=== PATIENT | female | born 1980 | race Caucasian/White ===

== ENCOUNTER 2017-08-27 15:19 | Emergency (ER) | payer OTHER ==
[~2017-08-27] VITALS: Ht 167.6 cm; Wt 84.4 kg
[~2017-08-27 15:19] MED LIST: ADAL40PEN; CYCL10 PO; FOLATE PO; LEUC5 PO; LORA1 PO; METTREX2.5 PO; Omeprazole20 M1 PO; TRAM50 PO
[2017-08-27] MEDS ORDERED: CHLO25 PO (16:30)
[2017-08-27 16:36] LABS: BASOPHILS ABSOLUTE AUTO 0.05 K/mm3 (0.00-0.23); BASOPHILS PERCENT AUTO 1 % (0-2); EOSINOPHILS ABSOLUTE AUTO 0.23 K/mm3 (0.00-0.68); EOSINOPHILS PERCENT AUTO 5 % (0-6); Hematocrit 39.7 % (33.0-51.0); Hemoglobin 12.9 g/dL (11.5-16.0); IMMATURE GRAN ABSOLUTE AUTO 0.01 K/mm3 (0.00-0.10); IMMATURE GRAN PERCENT AUTO 0 % (0-1); LYMPHOCYTES ABSOLUTE AUTO 1.67 K/mm3 (0.84-5.20); LYMPHOCYTES PERCENT AUTO 33 % (21-46); MONOCYTES ABSOLUTE AUTO 0.47 K/mm3 (0.16-1.47); MONOCYTES PERCENT AUTO 9 % (4-13); Mean Corpuscular HGB 29.9 pg (26.0-34.0); Mean Corpuscular HGB Conc 32.5 g/dL (31.5-36.5); Mean Corpuscular Volume 92 fL (80-100); NEUTROPHILS ABSOLUTE AUTO 2.65 K/mm3 (1.96-9.15); NEUTROPHILS PERCENT AUTO 52 % (41-73); Platelet Count 284 K/mm3 (150-400); RDW Coefficient Variation 17.2 % (11.7-14.2); RDW Standard Deviation 58.6 fL (35.1-46.3); Red Blood Cell Count 4.32 M/mm3 (3.80-5.20); White Blood Cell Count 5.08 K/mm3 (4.00-11.30)
[2017-08-27] MEDS ORDERED: Amoxicillin500 MG PO (16:47)
[2017-08-27 17:12] LABS: Alanine Aminotransfer (ALT/SGP 88 U/L (12-78); Albumin/Globulin Ratio 0.6 (0.8-1.8); Alk Phos 110 U/L (50-136); Anion Gap 11 mmol/L (6-16); Aspartate Aminotrans (AST/SGOT 107 U/L (12-37); Bilirubin, Total 0.3 mg/dL (0.1-1.0); Blood Urea Nitrogen 9 mg/dL (8-24); Bun/Creatinine Ratio 15.8 (12.0-20.0); CO2, Blood 23 mmol/L (21-32); Calcium, Blood 8.3 mg/dL (8.5-10.1); Chloride, Blood 105 mmol/L (98-108); Creatinine, Blood 0.57 mg/dL (0.40-1.00); Globulin, Blood 4.7 g/dL (2.2-4.0); Glomerular Filtration Rate >60 (60-); Glucose, Blood 105 mg/dL (70-99); Potassium, Blood 3.9 mmol/L (3.5-5.5); Sodium, Blood 139 mmol/L (136-145); Total Protein, Blood 7.7 g/dL (6.4-8.2)
== END 2017-08-27 18:29 | disposition home or self-care (01) ==
LOC: ER 15:19
PROVIDERS: Emergency Medicine
DX: F10.230 Alcohol dependence with withdrawal, uncomplicated (principal); F32.9 Major depressive disorder, single episode, unspecified; K02.9 Dental caries, unspecified; Z79.899 Other long term (current) drug therapy; F17.200 Nicotine dependence, unspecified, uncomplicated
CPT/HCPCS: 36415; 80053; 81000; 81025; 85025; 96361; 96374; 99284; J2060; J7030

== ENCOUNTER → 2017-12-11 | Outpatient (CLI) | payer OTHER ==
[~2017-12-11] MED LIST changes: +Amoxicillin500 MG PO; +CHLO25 PO
[2017-12-11 18:57] LABS: U Amphetamine Screen Not Detected; U Barbituate Screen Not Detected; U Benzodiazapine Screen DETECTED; U Cocaine Screen Not Detected; U Methadone Screen Not Detected; U Methamphetamine Screen Not Detected; U Opiates Screen Not Detected; U Phencyclidine Screen Not Detected
[2017-12-11 18:58] LABS: U Buprenorphine Screen Not Detected; U Cannabinoids Screen Not Detected; U Oxycodone Screen Not Detected; U Propoxyphene Screen Not Detected
== END ==
LOC: LAB 16:20 → LAB SHORT 16:20
PROVIDERS: Nurse Practitioner Family
DX: Z51.81 Encounter for therapeutic drug level monitoring (principal); Z79.899 Other long term (current) drug therapy

== ENCOUNTER 2018-08-21 12:49 | Emergency (ER) | payer OTHER ==
[~2018-08-21] VITALS: Ht 167.6 cm; Wt 99.8 kg
[2018-08-21] MEDS ORDERED: Ambien10 MG PO (13:52)
[2018-08-21] MEDS ORDERED: VIIBRYD20 MG PO (13:52)
[2018-08-21] MEDS ORDERED: Ativan1 MG PO (13:52)
== END 2018-08-21 14:01 | disposition home or self-care (01) ==
LOC: ER 12:49
DX: F32.9 Major depressive disorder, single episode, unspecified (principal); F17.210 Nicotine dependence, cigarettes, uncomplicated

== ENCOUNTER 2018-10-06 16:44 | Inpatient (IN) | payer OTHER ==
[~2018-10-06] VITALS: Ht 172.7 cm; Wt 99.9 kg
[~2018-10-06 16:44] MED LIST changes: +Ambien10 MG PO; +Ativan1 MG PO; +VIIBRYD20 MG PO
[2018-10-06 17:42] LABS: Base Excess Venous -5.8 mmol/L; Bicarbonate Venous 20.4 mmol/L (24.0-30.0); PCO2 Venous 30.8 mmHg (38-42); PO2 Venous 60.1 mmHg (38-42)
[2018-10-06 17:55] LABS: BASOPHILS ABSOLUTE AUTO 0.04 K/mm3 (0.00-0.23); BASOPHILS PERCENT AUTO 0 % (0-2); EOSINOPHILS ABSOLUTE AUTO 0.06 K/mm3 (0.00-0.68); EOSINOPHILS PERCENT AUTO 1 % (0-6); Hematocrit 43.4 % (33.0-51.0); Hemoglobin 13.7 g/dL (11.5-16.0); IMMATURE GRAN ABSOLUTE AUTO 0.04 K/mm3 (0.00-0.10); IMMATURE GRAN PERCENT AUTO 0 % (0-1); LYMPHOCYTES ABSOLUTE AUTO 1.68 K/mm3 (0.84-5.20); LYMPHOCYTES PERCENT AUTO 16 % (21-46); MONOCYTES ABSOLUTE AUTO 0.67 K/mm3 (0.16-1.47); MONOCYTES PERCENT AUTO 6 % (4-13); Mean Corpuscular HGB 26.6 pg (26.0-34.0); Mean Corpuscular HGB Conc 31.6 g/dL (31.5-36.5); Mean Corpuscular Volume 84 fL (80-100); Mean Platelet Volume 8.7 fL (9.1-12.4); NEUTROPHILS PERCENT AUTO 76 % (41-73); Platelet Count 407 K/mm3 (150-400); RDW Coefficient Variation 21.7 % (11.7-14.2); RDW Standard Deviation 66.5 fL (35.1-46.3); Red Blood Cell Count 5.15 M/mm3 (3.80-5.20); White Blood Cell Count 10.49 K/mm3 (4.00-11.30)
[2018-10-06] MEDS ORDERED: CHOL10002 (17:55)
[2018-10-06] MEDS ORDERED: Sudogest30 MG PO (17:59)
[2018-10-06 18:14] LABS: Alanine Aminotransfer (ALT/SGP 31 U/L (12-78); Alk Phos 104 U/L (50-136); Anion Gap 12 mmol/L (6-16); Aspartate Aminotrans (AST/SGOT 18 U/L (12-37); Bilirubin, Total 0.4 mg/dL (0.1-1.0); Blood Urea Nitrogen 5 mg/dL (8-24); Bun/Creatinine Ratio 7.3 (12.0-20.0); CO2, Blood 19 mmol/L (21-32); Calcium, Blood 9.1 mg/dL (8.5-10.1); Chloride, Blood 109 mmol/L (98-108); Creatinine, Blood 0.68 mg/dL (0.40-1.00); Ethanol (Alcohol), Blood, Med 15 mg/dL; Glomerular Filtration Rate >60 (60-); Glucose, Blood 122 mg/dL (70-99); Potassium, Blood 4.2 mmol/L (3.5-5.5); Salicylate <1.7 mg/dL (2.8-20.0); Sodium, Blood 140 mmol/L (136-145)
[2018-10-06 18:47] LABS: Bilirubin, Urine Neg (Neg); Blood, Urine 1+ (Neg); Glucose Qualitative, Urine Neg (Neg); Ketones, Urine 1+ (Neg); Leukocyte Esterase, Urine 1+ (Neg); Nitrite, Urine Neg (Neg); Protein, Urine Neg (Neg); Source, Urine Clean Catch; Urobilinogen, Urine NORM (Normal)
[2018-10-06 18:51] LABS: Appearance, Urine Clear (Clear); Color, Urine Yellow (P-Yellow)
[2018-10-06 18:53] LABS: Bacteria Few /hpf; Red Blood Cells, Urine 0-2 /hpf (0-2); Squamous Epithelial Cells Few /hpf (Few); White Blood Cells, Urine 0-2 /hpf (0-5)
[2018-10-06 18:58] LABS: U Amphetamine Screen Not Detected; U Barbituate Screen Not Detected; U Benzodiazapine Screen DETECTED; U Buprenorphine Screen Not Detected; U Cannabinoids Screen Not Detected; U Cocaine Screen Not Detected; U Methadone Screen Not Detected; U Methamphetamine Screen Not Detected; U Opiates Screen Not Detected; U Oxycodone Screen Not Detected; U Phencyclidine Screen Not Detected; U Propoxyphene Screen Not Detected
--- NOTE | 2018-10-06 20:46 | NUR ---
CALL TO DR PRICE POST ARRIVAL PT IS AGITATED, ATTEMPTING TO GET OOB AND PUSHING STAFF. CALL TO DR PRICE UPDATRED ON ER ATIVAN ADMINISTRATION (10MG)-NON-VIOLENT RESTRAINT ORDERS, HALDOL AND PRECEDEX ORDER OBTAINED.
[2018-10-06] MEDS ORDERED: HYDROCODON-ACE1 EAC3 PO (21:02)
--- NOTE | 2018-10-06 22:00 | NUR ---
CIVIL RIGHTS NO CIVIL RIGHTS PAPERWORK FOUND WITH PT'S ER ADMIT INFORMATION. CIVIL RIGHTS READ TO PT, PT SEDATED IN ER AND AGITATED AT ARRIVAL AND IS MUMBLING, OCCASIONALLY SPEAKS UNDERSTANDABLE WORDS BUT IS UNABLE TO SIGN. COPY LEFT AT BEDSIDE FOR PT WHEN LESS SEDATED/AGITATED.
[2018-10-06 22:54] LABS: Source, Urine Catheter
[2018-10-06 22:56] LABS: Bilirubin, Urine Neg (Neg); Blood, Urine Neg (Neg); Glucose Qualitative, Urine Neg (Neg); Ketones, Urine 2+ (Neg); Leukocyte Esterase, Urine Neg (Neg); Nitrite, Urine Neg (Neg); Protein, Urine Neg (Neg); Specific Gravity, Urine 1.005 (1.003-1.022); Urobilinogen, Urine NORM (Normal)
[2018-10-06 23:02] LABS: Appearance, Urine Clear (Clear); Color, Urine Pale Yellow (P-Yellow)
--- NOTE | 2018-10-07 00:20 | NUR ---
DR PRICE HERE UPDATED DR ON CURRENT MENTAL STATUS/INCREASED SOMNOLENCE, AND NO ADDITIONAL ATIVAN GIVEN SINCE ARRIVAL TO ICU. PRECEDEX HAS BEEN PLACED ON STANDBY D/T SEDATION (SEE ICU FLOW SHEET). PT DOES HAVE A GAG AND SWALLOW REFLEX. DISCUSSED POSSIBLE INTUBATION WITH DR PRICE, PLAN TO ATTEMPT BIPAP BEFORE INTUBATION. WILL REASSESS IN AN HOUR TO DETERMINE IF PT CAN PROTECT OWN AIRWAY.
--- NOTE | 2018-10-07 01:18 | NUR ---
UPDATE BIPAP OFF, PT REMAINS SOMNOLENT. ORAL CARE COMPLETED, PT CONTINUES TO HAVE A GAG AND SWALLOW REFLEX. PRECEDEX REMAINS OFF.
--- NOTE | 2018-10-07 02:50 | NUR ---
JEMTMATT PRICE TOOK OFF BIPAP AND PT HAD POSITIVE GAG AND SWALLOW; PT WOKE UP AFTER STERNAL RUB PERFORMED. PT IS A/0 X 3. BIPAP WILL REMAIN OFF; SATS ARE HIGH 90S-100. PT IS LESS AGITATED AND FOLLOWS COMMANDS. DR. PRICE HERE AND REASSESSED PT. WILL CONTINUE TO MONITOR.
--- NOTE | 2018-10-07 04:59 | NUR ---
UPDATE PT AWAKE, ALERT AND REQUESTING WATER. QUESTIONED PT RE: SUICIDE ATTEMPT/IDEATIONS. PT DENIES CURRENT SUICIDAL FEELINGS AND DOES NOT REMEMBER EVENTS FROM LAST NIGHT. PT DOES REPORT SHE HAS AN "UNREALISTIC PLAN" TO END HER LIFE AT THE [facility] AND THAT "I JUST FEEL SAD." DISCUSSED 2MD HOLD WITH PT WITH GOAL TO MAINTAIN HER SAFETY AND UNTIL HOLD IS DISCONTINUED, PT WOULD NOT BE ABLE TO LEAVE HOSPITAL. PT IS COOPERATIVE AND AGREES SHE NEEDS ADDITIONAL RESOURCES.
[2018-10-07 05:15] LABS: Hematocrit 37.6 % (33.0-51.0); Hemoglobin 12.3 g/dL (11.5-16.0); Mean Corpuscular HGB 26.6 pg (26.0-34.0); Mean Corpuscular HGB Conc 32.7 g/dL (31.5-36.5); Mean Platelet Volume 8.6 fL (9.1-12.4); Platelet Count 349 K/mm3 (150-400); RDW Coefficient Variation 21.6 % (11.7-14.2); RDW Standard Deviation 63.7 fL (35.1-46.3); Red Blood Cell Count 4.63 M/mm3 (3.80-5.20); White Blood Cell Count 15.11 K/mm3 (4.00-11.30)
[2018-10-07 05:18] LABS: Mean Corpuscular Volume 81 fL (80-100)
[2018-10-07 05:54] LABS: Alanine Aminotransfer (ALT/SGP 32 U/L (12-78); Albumin, Blood 3.3 g/dL (3.4-5.0); Albumin/Globulin Ratio 0.9 (0.8-1.8); Alk Phos 85 U/L (50-136); Anion Gap 13 mmol/L (6-16); Aspartate Aminotrans (AST/SGOT 13 U/L (12-37); Bilirubin, Total 0.8 mg/dL (0.1-1.0); Blood Urea Nitrogen 7 mg/dL (8-24); Bun/Creatinine Ratio 10.3 (12.0-20.0); CO2, Blood 21 mmol/L (21-32); Calcium, Blood 8.6 mg/dL (8.5-10.1); Chloride, Blood 109 mmol/L (98-108); Creatinine, Blood 0.68 mg/dL (0.40-1.00); Globulin, Blood 3.6 g/dL (2.2-4.0); Glomerular Filtration Rate >60 (60-); Glucose, Blood 123 mg/dL (70-99); Potassium, Blood 3.2 mmol/L (3.5-5.5); Sodium, Blood 143 mmol/L (136-145); Total Protein, Blood 6.9 g/dL (6.4-8.2)
--- NOTE | 2018-10-07 10:28 | NUR ---
DR. JORDAN CAME BY THIS MORNING AND GAVE OK FOR PT TO HAVE REGULAR DIET. ALSO GAVE OK TO ORDER LABS RECOMMENDED BY POISON CONTROL AND TO KASSIE PATEL SINCE PT IS ALERT AND AMBULATORY. PT HAS BEEN COOPERATIVE. SHE STILL FIDGETS A LOT AND PICKS AT THINGS, BUT IS REDIRECTABLE AND NOT INTENTIONALLY TRYING TO PULL THINGS OFF
--- NOTE | 2018-10-07 12:14 | NUR ---
REASSESSMENT: PT HAS BEEN COOPERATIVE THIS MORNING SO VEST RESTRAINT REMOVED AND PT HAS CONTINUED TO LISTEN TO STAFF AND NOT GET OUT OF BED. SHE IS STILL FIDGETY, UNINTENTIONALLY PULLING AT WIRES WHILE TRYING TO STRAIGHTEN OUT HER BED, BUT HAS BEEN REDIRECTABLE. SHE CONTINUES TO DENY ANY CURRENT SUICIDAL IDEATION. LUNGS REMAIN CLEAR, SR, BP ELEVATED WITH SBP 150S. ST WITH HR IN THE 130S. PATEL WAS REMOVED PER PROTOCOL AND PT IS VOIDING WITHOUT DIFFICULTY. SHE HAD A BM THIS MORNING. SHE IS EATING. PT'S MOTHER IN THE ROOM WITH HER CURRENTLY. CONTINUING TO MONITOR.
[2018-10-07 14:36] LABS: International Normalized Ratio 0.97; Prothrombin Time Results 10.3 Sec (9.7-11.5)
[2018-10-07 14:40] LABS: Acetaminophen, Random <2.0 ug/mL (10.0-30.0); Alanine Aminotransfer (ALT/SGP 30 U/L (12-78); Albumin, Blood 3.2 g/dL (3.4-5.0); Albumin/Globulin Ratio 0.9 (0.8-1.8); Alk Phos 92 U/L (50-136); Aspartate Aminotrans (AST/SGOT 18 U/L (12-37); Bilirubin, Direct <0.1 mg/dL (0.0-0.3); Bilirubin, Indirect Unable to Calculate mg/dL (0.1-0.7); Bilirubin, Total 0.3 mg/dL (0.1-1.0); Globulin, Blood 3.5 g/dL (2.2-4.0); Total Protein, Blood 6.7 g/dL (6.4-8.2)
--- NOTE | 2018-10-07 14:50 | NUR ---
DR. JORDAN INFORMED OF POISON CONTROL'S RECOMMENDATION THAT BICARB GTT IS OK TO STOP. RECEIVED OK TO STOP IV FLUIDS SINCE PT IS EATING AND DRINKING WELL.
--- NOTE | 2018-10-07 17:11 | NUR ---
SHIFT SUMMARY: PT HAS BEEN ALERT AND ORIENTED THROUGHOUT THE DAY. SHE HAS BEEN LESS ANXIOUS AND FIDGETY THE DAY WENT ON. STILL DENYING ANY CURRENT SUICIDAL IDEATION. SHE HAS HAD HER MOM AND ANOTHER VISITOR IN THE ROOM THIS AFTERNOON AND IS SITTING UP IN BED TALKING WITH THEM, SMILING AND LAUGHING AT TIMES. SHE IS STILL ST WITH RATE IN THE 120S, LUNGS CLEAR, RA. PATEL WAS REMOVED TODAY AND SHE IS VOIDING WITHOUT DIFFICULTY. SHE IS EATING GREATER THAN 50% OF HER MEALS. BICARB AND N-ACETYLCYSTINE GTTS WERE STOPPED THIS AFTERNOON AFTER DISCUSSING POISON CONTROL'S RECOMMENDATIONS WITH DR. JORDAN.
--- NOTE | 2018-10-07 21:37 | NUR ---
CARE ASSUMED REPORT RECEIVED, CARE ASSUMED AT 1900. PT PLEASANT, COOPERATIVE. REPORTS MILD ANXIETY BUT NO CURRENT SUICIDAL IDEATION. CONFIRMED WITH REMOTE MONITORING THAT PT IS ON CAMERA SYSTEM. VITALS STABLE, HR ELEVATED. PT REPORTS HR IS ALWAYS 120'S AT HOME. SEE ASSESSMENT. PT CALLING APPROPRIATELY FOR NEEDS, PT TO SHOWER WITH ALEJANDRINA, PCT WITHOUT DIFFICULTY.
--- NOTE | 2018-10-08 06:38 | NUR ---
SUMMARY NO ACUTE CHANGES THROUGHOUT SHIFT. PT HAS DENIED SUICIDAL IDEATION, CALLED APPROPRIATELY FOR NEEDS, AND FOLLOWED DIRECTIONS. PT DOES HAVE PERIODS OF ANXIETY REGARDING SPEAKING WITH PHYSICIAN TODAY ABOUT HER HOME MEDICATIONS. ENCOURAGED HER THAT HOSPITALIST WOULD BE IN FOR ASSESSMENT THIS MORNING. OTHERWISE, NO CHANGES. VITALS STABLE. CONTINUOUS MONITORING VIA CAMERA SYSTEM THROUGHOUT NIGHT.
--- NOTE | 2018-10-08 07:24 | NUR ---
REPORT TO RADHA SPANN TO ASSUME CARE
--- NOTE | 2018-10-08 10:40 | NUR ---
pt verbalized to licensed master social worker that she was having suicidal ideations
--- NOTE | 2018-10-08 12:00 | NUR ---
pt verbalized no suicidal ideations
--- NOTE | 2018-10-08 13:19 | NUR ---
PT STATUS CHANGED FROM ICU TO MED WITHOUT TELE AT 1030. PT WAS SEEN BY ADMISSION COMMITTEE FROM [facility] AND CASINO CAGE SUPERVISOR. PT WAS COMPLIANT AND PLEASANT TO ORIENTATION OF SUICIDE RISK PRECAUTIONS. PT SITTING PLEASANTLY IN BED AWAITING TRANSFER TO MEDICAL FLOOR. PT'S MOTHER HAS BEEN IN THE ROOM VISITING THROUGHOUT THE DAY.
--- NOTE | 2018-10-08 13:59 | NUR ---
pt sitting pleasantly with mom. Informed about transfer to medical floor, verbalized that she is willing to have the "suicide talk" in front of her mother. pt verbalizes no suicidal ideation
--- NOTE | 2018-10-08 14:32 | NUR ---
PT STABLE FOR TRANSFER TO MEDICAL FLOOR. REPORT CALLED TO DARWIN GARCIA ON MEDICAL FLOOR. PT TRANSFERED VIA WHEELCHAIR TO MEDICAL FLOOR WITH BELONGINGS.
--- NOTE | 2018-10-08 15:14 | NUR ---
PT TRANSFERRED FROM ICU 8, ACCOMPANIED BY MOTHER AND FRIEND, ORIENTED TO ROOM AND CALL SYSTEM. VERIFIED WITH REMOTE MONITER TECH, LAI HAZEL THAT PT IS BEING OBSERVED, WILL MONITOR FREQUENTLY
--- NOTE | 2018-10-09 02:13 | NUR ---
REMOTE WEBSITE OPTIMIZATION STRATEGISTADRIAN CINTRON CONFIRMED OBSERVING PT.
--- NOTE | 2018-10-09 04:54 | NUR ---
SHIFT SUMMARY PT HAD UNEVENTFUL SHIFT. PT WAS UP WITH A PUZZLE BOOK LATE INTO THE NIGHT. PT HAD COMPLAINTS OF BACK AND SHOULDER PAIN. PT TX PER EMAR WITH GOOD RESULTS. PT CURRENTLY SLEEPING AND BREATHING EASY. BED IN LOW POSITION.
--- NOTE | 2018-10-09 18:31 | NUR ---
WAITING FOR TRANSFER TO IN PATIENT [facility]. NO ACUTE CHANGES NOTED THIS SHIFT. WILL CONTINUE TO MONITOR AND REPORT TO ONCOMING RN
--- NOTE | 2018-10-09 22:00 | NUR ---
PT SHOWERED W/SHARK BIOLOGIST MONITORING. CONT'S TO DENY CURRENT SI.
--- NOTE | 2018-10-10 01:31 | NUR ---
CONTACT (IFRAH) FROM [facility] IN [place], OR CALLED TO DISCUSS PT HX AND REQUESTED ADDITIONAL DOCUMENTS. H&P, RECENT PROGRESS NOTE, LABS AND ER DOCUMENTATION WERE FAXED. SHE STATED THAT PT WILL NOT BE ACCEPTED OR TRANSFERRED TONIGHT BUT POSSIBLY COULD BE TODAY AFTER DISCUSSION WAS HAD W/[facility] OFFICIALS RE: 2 MD HOLD. WILL ENSURE DAY STAFF ARE AWARE.
--- NOTE | 2018-10-10 04:50 | NUR ---
SUMMARY: PT IS A/OX4, INDEPENDENT AND SPECIFIES NEEDS. SHE REMAINS ON 2MD HOLD FOR PREVIOUS SI ATTEMPT NOW ON CAMERA MONITORING. SHE'S DENIED ANY CURRENT SI BUT ADMITS TO FEELING "DOWN" GENERALLY "ALWAYS". SHE SHOWERED THIS SHIFT AND HAD DIFFICULTY SLEEPING D/T NOISE LEVEL ON SCU. PT BECAME TEARFUL RE: ANXIETY IT WAS CAUSING. EAR PLUGS PROVIDED AND NEW ORDER RECIEVED FOR X1 DOSE OF MELATONIN BUT PT REFUSED MED. [facility] IN [place] REQUESTED FURTHER DOCUMENTATION TO DETERMINE PLACEMENT ELIGIBILTY. PAPERWORK FAXED AND PT LIKELY TO BE ACCEPTED PENDING F/U W/[facility] RE: 2MD HOLD. NO ACUTE CHANGES. VSS/AFEBRILE. WILL MONITOR AND REPORT TO DAY RN.
[2018-10-10 10:59] LABS: Source, Urine Voided
[2018-10-10 11:09] LABS: Bilirubin, Urine Neg (Neg); Blood, Urine Neg (Neg); Glucose Qualitative, Urine Neg (Neg); Ketones, Urine Neg (Neg); Leukocyte Esterase, Urine 1+ (Neg); Nitrite, Urine Neg (Neg); Protein, Urine Neg (Neg); Urobilinogen, Urine NORM (Normal); pH, Urine 6.5 (5.0-8.0)
[2018-10-10 11:20] LABS: Appearance, Urine Clear (Clear); Color, Urine Yellow (P-Yellow)
[2018-10-10 11:21] LABS: Bacteria Rare /hpf; Red Blood Cells, Urine Not Seen /hpf (0-2); Squamous Epithelial Cells Not Seen /hpf (Few); White Blood Cells, Urine 0-2 /hpf (0-5)
--- NOTE | 2018-10-10 15:07 | NUR ---
TRANSFER ORDERS PT IS A/O X4, SHE STATE NOT FEELING SUICIDAL @ THIS TIME. STATE HOPEFUL FOR INPT TX. [facility] UNDERWOOD ASSISTING WITH PLACEMENT ARRANGE TRANSFER TO [facility]. DR JORDAN PLACE ORDERS. SECURE TRANSPORTATION ARRANGED FOR 1600 TODAY. ATTEMPT TO CALL REPORT HOWEVER RN THEY ARE NOT READY @ THIS TIME STATE THEY WILL CALL US WHEN AVAIL FOR REPORT, GREASE MACHINE WORKER AWARE. VSS. HAVE GIVEN ATIVAN & NORCO APPROX Q6 FOR BACK PAIN & ANXIOUSNESS.
--- NOTE | 2018-10-10 16:19 | NUR ---
COBRA TRANSFER REPORT CALLED TO [facility] RN. [facility] WILL BE HERE APPROX 1700 FOR P/U. PT NOTIFIED.
== END 2018-10-10 17:20 | DRG 918 ==
LOC: ER 16:44 → MEDS 20:14 → ICUW 20:30 → ICUE 20:30 → MEDS 10-08 14:45
PROVIDERS: Emergency Medicine; Internal Medicine; ADMIT Internal Medicine
DX: T39.1X2A Poisoning by 4-Aminophenol derivatives, intentional self-harm, initial encounter (principal); E87.2 Acidosis; F32.9 Major depressive disorder, single episode, unspecified; E87.6 Hypokalemia; F17.210 Nicotine dependence, cigarettes, uncomplicated; M06.9 Rheumatoid arthritis, unspecified; F10.20 Alcohol dependence, uncomplicated
CPT/HCPCS: 36415; 51703; 80053; 80076; 81001; 81003; 81025; 82803; 83735; 84132; 84443; 84703; 85025; 85027; 85610; 87086; 93005; 93010; 94640; 94660; 94760; 96361; 96374; 96376; 99285-25; A9270-GY; G0480; J0132; J1630; J1650; J2060; J3480; J7030; J7040; J7060; J7070; J8610

== ENCOUNTER → 2019-07-11 | Outpatient (CLI) | payer OTHER ==
[~2019-07-11] MED LIST changes: +CHOL10002; +HYDROCODON-ACE1 EAC3 PO; +Sudogest30 MG PO
[2019-07-11 18:48] LABS: U Amphetamine Screen Not Detected; U Barbituate Screen Not Detected; U Benzodiazapine Screen Not Detected; U Buprenorphine Screen Not Detected; U Cannabinoids Screen Not Detected; U Cocaine Screen Not Detected; U Methadone Screen Not Detected; U Methamphetamine Screen Not Detected; U Opiates Screen Not Detected; U Oxycodone Screen Not Detected; U Phencyclidine Screen Not Detected; U Propoxyphene Screen Not Detected
== END | disposition home or self-care (01) ==
LOC: LAB 17:33 → LAB SHORT 17:33
PROVIDERS: Registered Nurse Psychiatric/Mental Health
DX: Z51.81 Encounter for therapeutic drug level monitoring (principal); Z79.899 Other long term (current) drug therapy

== ENCOUNTER 2020-10-13 10:03 | Day surgery (SDC) | payer OTHER ==
[~2020-10-13] VITALS: Ht 170.2 cm; Wt 95.6 kg
[~2020-10-13 10:03] MED LIST changes: +BUPR150ER PO; +FLECTOR IV; +FOLI1 PO; +LAMO100 PO; +LORA.5 PO; +VIIBRYD40 MG PO
--- NOTE | 2020-10-13 11:38 | NUR ---
Ambulatory in Day Surgery History, Chart, Medications and Allergies reviewed before start of procedure.Lungs clear T/O to Auscultation. Patient confirms NPO status and agrees with scheduled surgery.
--- NOTE | 2020-10-13 11:47 | NUR ---
10/13/20 1147 Denton Ibarra History, Chart, Medications and Allergies reviewed before start of procedure. MONITOR INTACT WITH CONTINUOUS PULSE OXIMETRY AND INTERMITTENT BP. 3-LEAD EKG REVIEWED WITH PHYSICIAN PRIOR TO START OF PROCEDURE. O2 VIA N/C INTACT THROUGHOUT SEDATION/PROCEDURE. HURRICAINE SPRAY TO OROPHARYX. Bite Block Placed PATIENT DETERMINED TO BE ASA APPROPRIATE FOR PROPOFOL SEDATION PRIOR TO START OF PROCEDURE BY DR. ZARAGOZA.
--- NOTE | 2020-10-13 12:40 | NUR ---
Discharge instructions reviewed with patient. Patient verbalizes understanding. Copy given to patient to take home. Discharged via wheelchair to private car for ride home.
== END 2020-10-13 22:57 | disposition home or self-care (01) ==
LOC: ORSCMMR 10:03 → ORD 11:00 → ORSCMMR 22:57
PROVIDERS: Internal Medicine Gastroenterology
PROC: 0DB48ZX Excision of Esophagogastric Junction, Via Natural or Artificial Opening Endoscopic, Diagnostic (ICD-10-PCS; principal; 2020-10-13 11:00)
PROC: 0DB58ZX Excision of Esophagus, Via Natural or Artificial Opening Endoscopic, Diagnostic (ICD-10-PCS; principal; 2020-10-13 11:00)
DX: K22.70 Barrett's esophagus without dysplasia (principal); K21.9 Gastro-esophageal reflux disease without esophagitis; F32.9 Major depressive disorder, single episode, unspecified; F17.210 Nicotine dependence, cigarettes, uncomplicated; Z79.899 Other long term (current) drug therapy; K44.9 Diaphragmatic hernia without obstruction or gangrene
CPT/HCPCS: 88305; A9270; J2704; J7120

== ENCOUNTER 2024-02-13 03:35 | Day surgery (SDC) | payer MEDICARE, OTHER ==
[~2024-02-13 03:35] MED LIST changes: +ERGO400 PO; +Flonase 0.05% N16 GM; +KLONOPIN0.5 M9 PO; +Norco 5-325 Ta1 EACH PO; +OMEP20ER PO; -Omeprazole20 M1 PO; +RENFLEXIS100 M1 INJ; +ROSUVASTATIN CAL5 MG PO; +VILAZODONE HCL20 MG PO
[2024-02-13] MEDS ORDERED: INFLIXIMAB ABDA IV SCH (14:15)
[2024-02-13] MEDS ORDERED: NS IV SCH (14:15)
[2024-02-13 14:17] VITALS: BP 156/93
== END 2024-02-13 23:35 | disposition home or self-care (01) ==
LOC: ATC 03:35
DX: M45.9 Ankylosing spondylitis of unspecified sites in spine (principal); F17.200 Nicotine dependence, unspecified, uncomplicated
CPT/HCPCS: 96413; 96415; J7050; Q5104

== ENCOUNTER 2024-03-26 02:16 | Day surgery (SDC) | payer MEDICARE, OTHER ==
[~2024-03-26] VITALS: Wt 100.9 kg
[2024-03-26 13:55] VITALS: BP 141/92
[2024-03-26] MEDS ORDERED: INFLIXIMAB ABDA IV SCH (13:55)
[2024-03-26] MEDS ORDERED: NS IV SCH (13:55)
[2024-03-26 14:30] LABS: BASOPHILS ABSOLUTE AUTO 0.05 K/mm3 (0.00-0.23); BASOPHILS PERCENT AUTO 1 % (0-2); EOSINOPHILS PERCENT AUTO 3 % (0-6); Hematocrit 39.5 % (33.0-51.0); Hemoglobin 13.7 g/dL (11.5-16.0); IMMATURE GRAN ABSOLUTE AUTO 0.01 K/mm3 (0.00-0.10); IMMATURE GRAN PERCENT AUTO 0 % (0-1); LYMPHOCYTES ABSOLUTE AUTO 1.89 K/mm3 (0.84-5.20); LYMPHOCYTES PERCENT AUTO 25 % (21-46); MONOCYTES ABSOLUTE AUTO 0.48 K/mm3 (0.16-1.47); MONOCYTES PERCENT AUTO 6 % (4-13); Mean Corpuscular HGB 32.4 pg (26.0-34.0); Mean Corpuscular HGB Conc 34.7 g/dL (31.5-36.5); Mean Corpuscular Volume 93 fL (80-100); Mean Platelet Volume 9.5 fL (9.1-12.4); NEUTROPHILS PERCENT AUTO 65 % (41-73); Platelet Count 353 K/mm3 (150-400); RDW Standard Deviation 47.1 fL (35.1-46.3); Red Blood Cell Count 4.23 M/mm3 (3.80-5.20); White Blood Cell Count 7.53 K/mm3 (4.00-11.30)
[2024-03-26 15:06] LABS: Albumin, Blood 3.5 g/dL (3.4-5.0); Albumin/Globulin Ratio 0.9 (0.8-1.8); Bilirubin, Total 0.5 mg/dL (0.1-1.0); C-REACTIVE PROTEIN, EXT RANGE 0.377 mg/dL (0.000-0.300); Creatinine, Blood 0.63 mg/dL (0.40-1.00); Globulin, Blood 3.7 g/dL (2.2-4.0); Potassium, Blood 4.6 mmol/L (3.5-5.5); Total Protein, Blood 7.2 g/dL (6.4-8.2)
== END 2024-03-26 16:34 | disposition home or self-care (01) ==
LOC: ATC 02:16
PROVIDERS: Internal Medicine
DX: M45.9 Ankylosing spondylitis of unspecified sites in spine (principal); L40.59 Other psoriatic arthropathy; J45.909 Unspecified asthma, uncomplicated; Z79.899 Other long term (current) drug therapy
CPT/HCPCS: 80053; 85025; 86140; 96413; 96415; J7050; Q5104

== ENCOUNTER 2024-05-20 02:08 | Day surgery (SDC) | payer MEDICARE ==
[~2024-05-20] VITALS: Wt 96.3 kg
[2024-05-20 14:37] VITALS: BP 148/100
[2024-05-20] MEDS ORDERED: NS IV SCH (14:45)
[2024-05-20] MEDS ORDERED: INFLIXIMAB ABDA IV SCH (14:45)
== END 2024-05-20 17:30 | disposition home or self-care (01) ==
LOC: ATC 02:08
DX: M45.9 Ankylosing spondylitis of unspecified sites in spine (principal); Z79.899 Other long term (current) drug therapy
CPT/HCPCS: 96413; 96415; J7050; Q5104

== ENCOUNTER 2024-07-08 03:42 | Day surgery (SDC) | payer OTHER ==
[~2024-07-08] VITALS: Wt 97.6 kg
[2024-07-08 15:19] VITALS: BP 137/90
[2024-07-08] MEDS ORDERED: INFLIXIMAB ABDA IV SCH (15:20)
[2024-07-08] MEDS ORDERED: NS IV SCH (15:20)
[2024-07-08 15:45] LABS: BASOPHILS ABSOLUTE AUTO 0.04 K/mm3 (0.00-0.23); BASOPHILS PERCENT AUTO 1 % (0-2); EOSINOPHILS ABSOLUTE AUTO 0.19 K/mm3 (0.00-0.68); EOSINOPHILS PERCENT AUTO 3 % (0-6); Hemoglobin 13.8 g/dL (11.5-16.0); IMMATURE GRAN ABSOLUTE AUTO 0.02 K/mm3 (0.00-0.10); IMMATURE GRAN PERCENT AUTO 0 % (0-1); LYMPHOCYTES ABSOLUTE AUTO 2.05 K/mm3 (0.84-5.20); LYMPHOCYTES PERCENT AUTO 32 % (21-46); MONOCYTES ABSOLUTE AUTO 0.51 K/mm3 (0.16-1.47); MONOCYTES PERCENT AUTO 8 % (4-13); Mean Corpuscular HGB 32.2 pg (26.0-34.0); Mean Corpuscular HGB Conc 34.5 g/dL (31.5-36.5); Mean Corpuscular Volume 94 fL (80-100); Mean Platelet Volume 8.8 fL (9.1-12.4); NEUTROPHILS ABSOLUTE AUTO 3.68 K/mm3 (1.96-9.15); NEUTROPHILS PERCENT AUTO 57 % (41-73); Platelet Count 349 K/mm3 (150-400); RDW Coefficient Variation 12.9 % (11.7-14.2); RDW Standard Deviation 43.7 fL (35.1-46.3); Red Blood Cell Count 4.28 M/mm3 (3.80-5.20); White Blood Cell Count 6.49 K/mm3 (4.00-11.30)
[2024-07-08 16:08] LABS: C-REACTIVE PROTEIN, EXT RANGE 0.841 mg/dL (0.000-0.300)
[2024-07-08 16:25] LABS: Albumin, Blood 3.6 g/dL (3.4-5.0); Albumin/Globulin Ratio 0.9 (0.8-1.8); Bilirubin, Total 0.4 mg/dL (0.1-1.0); Bun/Creatinine Ratio 12.1 (12.0-20.0); Calcium, Blood 9.2 mg/dL (8.5-10.1); Creatinine, Blood 0.66 mg/dL (0.40-1.00); Globulin, Blood 3.8 g/dL (2.2-4.0); Potassium, Blood 3.7 mmol/L (3.5-5.5); Total Protein, Blood 7.4 g/dL (6.4-8.2)
--- NOTE | 2024-07-08 16:29 | NUR ---
Lab results from today (except Quant TB which is a send out) faxed to Dr. Summers's office.
[2024-07-10 21:51] LABS: QUANTIFERON MITOGEN MINUS NIL 9.99 IU/mL; QUANTIFERON NIL 0.01 IU/mL; QUANTIFERON PLUS TB2 MINUS NIL 0.02 IU/mL (<=0.34)
== END 2024-07-08 17:54 | disposition home or self-care (01) ==
LOC: ATC 03:42
PROVIDERS: Internal Medicine
DX: M45.9 Ankylosing spondylitis of unspecified sites in spine (principal); L40.50 Arthropathic psoriasis, unspecified; F17.290 Nicotine dependence, other tobacco product, uncomplicated; Z79.899 Other long term (current) drug therapy
CPT/HCPCS: 80053; 85025; 86140; 86480; 96413; 96415; J7050; Q5104

== ENCOUNTER 2024-08-19 01:53 | Day surgery (SDC) | payer OTHER ==
[2024-08-19 15:14] VITALS: BP 129/98
[2024-08-19] MEDS ORDERED: Infliximab-DYYB 500 MG in NS 250 ML IV SCH (15:20)
== END 2024-08-19 18:07 | disposition home or self-care (01) ==
LOC: ATC 01:53
DX: M45.9 Ankylosing spondylitis of unspecified sites in spine (principal); L40.50 Arthropathic psoriasis, unspecified; Z79.899 Other long term (current) drug therapy
CPT/HCPCS: 96413; 96415; J7050; Q5103

== ENCOUNTER 2024-10-01 02:29 | Day surgery (SDC) | payer OTHER ==
[2024-10-01] MEDS ORDERED: Infliximab-DYYB 500 MG in NS 250 ML IV SCH (14:50)
[2024-10-01 14:53] VITALS: BP 156/98
[2024-10-01 15:15] LABS: BASOPHILS ABSOLUTE AUTO 0.04 K/mm3 (0.00-0.23); BASOPHILS PERCENT AUTO 1 % (0-2); EOSINOPHILS ABSOLUTE AUTO 0.12 K/mm3 (0.00-0.68); EOSINOPHILS PERCENT AUTO 1 % (0-6); Hematocrit 40.7 % (33.0-51.0); Hemoglobin 13.9 g/dL (11.5-16.0); IMMATURE GRAN ABSOLUTE AUTO 0.02 K/mm3 (0.00-0.10); IMMATURE GRAN PERCENT AUTO 0 % (0-1); LYMPHOCYTES ABSOLUTE AUTO 2.16 K/mm3 (0.84-5.20); LYMPHOCYTES PERCENT AUTO 25 % (21-46); MONOCYTES ABSOLUTE AUTO 0.66 K/mm3 (0.16-1.47); MONOCYTES PERCENT AUTO 8 % (4-13); Mean Corpuscular HGB 31.7 pg (26.0-34.0); Mean Corpuscular HGB Conc 34.2 g/dL (31.5-36.5); Mean Corpuscular Volume 93 fL (80-100); Mean Platelet Volume 8.4 fL (9.1-12.4); NEUTROPHILS ABSOLUTE AUTO 5.61 K/mm3 (1.96-9.15); NEUTROPHILS PERCENT AUTO 65 % (41-73); Platelet Count 390 K/mm3 (150-400); RDW Standard Deviation 44.1 fL (35.1-46.3); Red Blood Cell Count 4.38 M/mm3 (3.80-5.20); White Blood Cell Count 8.61 K/mm3 (4.00-11.30)
[2024-10-01 15:41] LABS: C-REACTIVE PROTEIN, EXT RANGE 0.484 mg/dL (0.000-0.300)
[2024-10-01 15:51] LABS: Albumin/Globulin Ratio 1.2 (0.8-1.8); Bilirubin, Total 0.2 mg/dL (0.1-1.0); Bun/Creatinine Ratio 15.1 (12.0-20.0); Calcium, Blood 9.4 mg/dL (8.5-10.1); Creatinine, Blood 0.6 mg/dL (0.40-1.00); Globulin, Blood 3.2 g/dL (2.2-4.0); Potassium, Blood 3.9 mmol/L (3.5-5.5); Total Protein, Blood 7.2 g/dL (6.4-8.2)
== END 2024-10-01 17:15 | disposition home or self-care (01) ==
LOC: ATC 02:29
PROVIDERS: Internal Medicine Rheumatology
DX: M45.9 Ankylosing spondylitis of unspecified sites in spine (principal); L40.59 Other psoriatic arthropathy; J45.909 Unspecified asthma, uncomplicated; F17.210 Nicotine dependence, cigarettes, uncomplicated; Z79.899 Other long term (current) drug therapy
CPT/HCPCS: 80053; 85025; 86140; 96413; 96415; J7050; Q5103

== ENCOUNTER 2024-11-12 00:26 | Day surgery (SDC) | payer OTHER ==
[~2024-11-12] VITALS: Wt 98.4 kg
[2024-11-12 14:08] VITALS: BP 137/88
[2024-11-12] MEDS ORDERED: Infliximab-DYYB 500 MG in NS 250 ML IV SCH (14:20)
== END 2024-11-12 16:55 | disposition home or self-care (01) ==
LOC: ATC 00:26
DX: M45.9 Ankylosing spondylitis of unspecified sites in spine (principal); L40.50 Arthropathic psoriasis, unspecified; G89.29 Other chronic pain; M54.50 Low back pain, unspecified; J45.909 Unspecified asthma, uncomplicated; F17.200 Nicotine dependence, unspecified, uncomplicated; Z79.631 Long term (current) use of antimetabolite agent; Z79.899 Other long term (current) drug therapy
CPT/HCPCS: 96413; 96415; J7050; Q5103

== ENCOUNTER 2024-12-24 03:02 | Day surgery (SDC) | payer OTHER ==
[~2024-12-24] VITALS: Wt 99.5 kg
[2024-12-24] MEDS ORDERED: Infliximab-DYYB 500 MG in NS 250 ML IV SCH (14:15)
[2024-12-24 15:00] VITALS: BP 111/79
[2024-12-24 15:52] LABS: BASOPHILS ABSOLUTE AUTO 0.04 K/mm3 (0.00-0.23); BASOPHILS PERCENT AUTO 1 % (0-2); EOSINOPHILS ABSOLUTE AUTO 0.23 K/mm3 (0.00-0.68); EOSINOPHILS PERCENT AUTO 3 % (0-6); Hematocrit 38.9 % (33.0-51.0); Hemoglobin 13.2 g/dL (11.5-16.0); IMMATURE GRAN ABSOLUTE AUTO 0.02 K/mm3 (0.00-0.10); IMMATURE GRAN PERCENT AUTO 0 % (0-1); LYMPHOCYTES ABSOLUTE AUTO 1.98 K/mm3 (0.84-5.20); LYMPHOCYTES PERCENT AUTO 26 % (21-46); MONOCYTES ABSOLUTE AUTO 0.53 K/mm3 (0.16-1.47); MONOCYTES PERCENT AUTO 7 % (4-13); Mean Corpuscular HGB Conc 33.9 g/dL (31.5-36.5); Mean Corpuscular Volume 94 fL (80-100); NEUTROPHILS ABSOLUTE AUTO 4.74 K/mm3 (1.96-9.15); NEUTROPHILS PERCENT AUTO 63 % (41-73); NRBC ABSOLUTE 0.00 K/mm3 (0.00-0.02); NRBC Auto 0.0 /100 WBC (0.0-0.2); Platelet Count 354 K/mm3 (150-400); RDW Coefficient Variation 12.3 % (11.7-14.2); RDW Standard Deviation 42.3 fL (35.1-46.3)
[2024-12-24 16:13] LABS: C-REACTIVE PROTEIN, EXT RANGE 0.554 mg/dL (0.000-0.300)
[2024-12-24 16:16] LABS: Alanine Aminotransfer (ALT/SGP 21.0 U/L (12-78); Albumin, Blood 3.5 g/dL (3.4-5.0); Albumin/Globulin Ratio 1.1 (0.8-1.8); Anion Gap 4.0 mmol/L (3-11); Aspartate Aminotrans (AST/SGOT 13.0 U/L (12-37); Bilirubin, Total 0.3 mg/dL (0.1-1.0); Blood Urea Nitrogen 9.0 mg/dL (8-24); CO2, Blood 30.0 mmol/L (21-32); Calcium, Blood 8.9 mg/dL (8.5-10.1); Chloride, Blood 106.0 mmol/L (98-108); Creatinine, Blood 0.64 mg/dL (0.40-1.00); Globulin, Blood 3.3 g/dL (2.2-4.0); Glucose, Blood 103.0 mg/dL (70-99); Potassium, Blood 3.4 mmol/L (3.5-5.5); Sodium, Blood 137.0 mmol/L (136-145); Total Protein, Blood 6.8 g/dL (6.4-8.2)
== END 2024-12-24 17:02 | disposition home or self-care (01) ==
LOC: ATC 03:02
PROVIDERS: Internal Medicine Rheumatology
DX: M45.9 Ankylosing spondylitis of unspecified sites in spine (principal); L40.50 Arthropathic psoriasis, unspecified; J45.909 Unspecified asthma, uncomplicated; F17.200 Nicotine dependence, unspecified, uncomplicated; E66.3 Overweight; Z68.34 Body mass index [BMI] 34.0-34.9, adult; Z79.899 Other long term (current) drug therapy
CPT/HCPCS: 80053; 85025; 86140; 96413; 96415; J7050; Q5103

== ENCOUNTER 2025-03-18 03:01 | Day surgery (SDC) | payer OTHER ==
[~2025-03-18] VITALS: Wt 96.0 kg
[2025-03-18 14:22] VITALS: BP 127/83
[2025-03-18] MEDS ORDERED: Infliximab-DYYB 500 MG in NS 250 ML IV SCH (14:35)
== END 2025-03-18 17:08 | disposition home or self-care (01) ==
LOC: ATC 03:01
DX: M45.0 Ankylosing spondylitis of multiple sites in spine (principal); L40.9 Psoriasis, unspecified; M19.90 Unspecified osteoarthritis, unspecified site; K21.9 Gastro-esophageal reflux disease without esophagitis; E66.9 Obesity, unspecified; F17.210 Nicotine dependence, cigarettes, uncomplicated
CPT/HCPCS: 96413; 96415; J7050; Q5103

== ENCOUNTER 2025-04-29 01:11 | Day surgery (SDC) | payer OTHER ==
[~2025-04-29] VITALS: Wt 94.5 kg
[2025-04-29] MEDS ORDERED: Infliximab-DYYB 500 MG in NS 250 ML IV SCH (06:00)
[2025-04-29 14:00] VITALS: BP 159/88
== END 2025-04-29 16:45 | disposition home or self-care (01) ==
LOC: ATC 01:11
DX: M45.0 Ankylosing spondylitis of multiple sites in spine (principal); L40.50 Arthropathic psoriasis, unspecified; L40.9 Psoriasis, unspecified; M19.90 Unspecified osteoarthritis, unspecified site; K21.9 Gastro-esophageal reflux disease without esophagitis; F17.210 Nicotine dependence, cigarettes, uncomplicated; E66.9 Obesity, unspecified; Z68.34 Body mass index [BMI] 34.0-34.9, adult; Z79.1 Long term (current) use of non-steroidal anti-inflammatories (NSAID); Z79.899 Other long term (current) drug therapy
CPT/HCPCS: 96365; 96413; 96415; J7050; Q5103

== ENCOUNTER 2025-06-25 07:12 | Day surgery (SDC) | payer OTHER ==
[2025-06-25 08:01] VITALS: BP 135/93
[2025-06-25] MEDS ORDERED: Infliximab-DYYB 500 MG in NS 250 ML IV SCH (08:15)
== END 2025-06-25 10:39 | disposition home or self-care (01) ==
LOC: ATC 07:12
DX: M45.0 Ankylosing spondylitis of multiple sites in spine (principal); D84.9 Immunodeficiency, unspecified; K21.9 Gastro-esophageal reflux disease without esophagitis
CPT/HCPCS: 96413; 96415; J7050; Q5103